=== PATIENT | female | born 1950 | race American Indian/Alaskan Native ===

== ENCOUNTER 2016-08-30 20:06 | Emergency (ER) | payer MEDICARE ==
--- NOTE | 2016-08-30 20:17 | Emergency Department Report ---
HPI - General Time Seen by Provider: 08/30/16 20:14 - HPI HPI: This is a 66-year-old Afro[place] female who presents the emergency department by EMS from home in cardiac arrest. There is a unknown down time. Patient was found around 720 by her family pulseless on a bedside commode or toilet. EMS was on scene by 7:30 PM and the patient was in asystole. The patient was intubated and chest compressions were started. The patient did receive an IV but it blew very quickly and she did not receive any ACLS drugs. Patient arrived to [facility] at around 8:00 PM with chest compressions continuing but still pulseless and in asystole. There is not much history, however EMS was able to say that the family mention the patient been having some coffee-ground emesis today. He suggested that she see a doctor or go to the ER but she refused to do so. ED Review of Systems ROS: Stated complaint: CARDIAC ARREST Other details as noted in HPI Comment: Unobtainable due to pts medical conditions Physical Exam - Physical Exam Physical Exam: GENERAL: Patient is ill-appearing and unresponsive. HEENT: Normocephalic. Pupils are fixed and dilated. ET tube in place. NECK: Supple. Trachea is midline. CHEST/LUNGS: There are no spontaneous lung sounds. HEART/CARDIOVASCULAR: No spontaneous heart sounds. ABDOMEN: Abdomen is soft. SKIN: Skin is cool but dry. NEURO: Patient is unresponsive to verbal, tactile or painful stimuli and does not follow any commands. MUSCULOSKELETAL: There is no deformity. No spontaneous movement of the extremities. There was no palpable pulse to the radial or femoral regions. ED Medical Decision Making - Medical Decision Making 66-year-old female presents to the emergency department in cardiac arrest. Patient has unknown down time. Even with counting her to be pulseless starting with EMSs arrival, the patient will have been pulseless and apneic for 35 minutes by the time she has reached the emergency department. Patient was placed on the monitor and remained in asystole. Chest compressions were started immediately. The plan was going to be to try and gain access via IV and at least give a few rounds of ACLS drugs. However the patient is cold, started to become rigid, and we're unable to gain IV access. As the patient has been receiving over 30 minutes of chest compressions and ventilation assistance, any further resuscitation attempts are futile. Her pupils are fixed and dilated, there are no spontaneous heart sounds. One further pulse check was done and the patient was pulseless in asystole so time of was called. - Differential Diagnosis cardiac arrest Critical Care Time: Yes Critical care time in (mins) excluding proc time.: 8 Critical care attestation.: If time is entered above; I have spent that time in minutes in the direct care of this critically ill patient, excluding procedure time. Cranial care time was spent in supervising ACLS protocol that included chest compressions, telemetry monitoring for rhythm checks and physical examination. Critical Care Time: 8 mins ED Disposition Clinical Impression: Cardiac arrest Respiratory failure Qualifiers: Chronicity: unspecified Respiratory failure complication: unspecified whether with hypoxia or hypercapnia Qualified Code(s): J96.90 - Respiratory failure, unspecified, unspecified whether with hypoxia or hypercapnia Disposition: Is pt being admited?: No Time of Disposition: 20:42
[2016-08-30] MEDS ORDERED: ADRENALIN ONE (21:00)
== END 2016-08-31 02:30 ==
LOC: ED 20:06
DX: I46.9 Cardiac arrest, cause unspecified (principal); J96.90 Respiratory failure, unspecified, unspecified whether with hypoxia or hypercapnia
CPT/HCPCS: 92950; 99285; J0171